=== PATIENT | female | born 1975 | race Caucasian/White ===

== ENCOUNTER 2023-08-19 18:22 | Inpatient (IN) | payer BC, OTHER ==
[~2023-08-19] VITALS: Ht 165.1 cm; Wt 138.2 kg
[2023-08-19 18:52] LABS: BASOPHILS % (AUTO) 0.4 % (0-1); EOSINOPHILS % (AUTO) 0 % (0-6); HEMATOCRIT 32.9 % (35.0-45.0); HEMOGLOBIN 10.9 g/dl (12.0-16.0); LYMPHOCYTES # (AUTO) 0.8 X10'3 (1.1-4.8); LYMPHOCYTES % (AUTO) 8.2 % (21-51); MEAN CORPUSCULAR HEMOGLOBIN 26.3 PG (27.0-31.0); MEAN CORPUSCULAR HGB CONC 33.2 g/dL (33.0-36.5); MEAN CORPUSCULAR VOLUME 79.4 FL (78-98); MEAN PLATELET VOLUME 8.6 FL (7.4-10.4); MONOCYTES # (AUTO) 0.5 X10'3 (0-0.9); MONOCYTES % (AUTO) 5.1 % (2-12); NEUTROPHILS % (AUTO) 86.3 % (42-75); PLATELET COUNT 279 X10'3 (140-440); RED BLOOD COUNT 4.14 X10'6 (4.20-5.60); RED CELL DISTRIBUTION WIDTH 15.9 % (11.5-14.5); WHITE BLOOD COUNT 10.4 X10'3 (4.5-11.0)
[2023-08-19 19:09] LABS: ALANINE AMINOTRANSFERASE 14 U/L (12-78); ALBUMIN 3.1 G/DL (3.4-5.0); ALBUMIN/GLOBULIN RATIO 0.8 (1.1-1.5); ALKALINE PHOSPHATASE 66 IU/L (46-116); ANION GAP 9 (8-16); ASPARTATE AMINO TRANSFERASE 13 U/L (10-37); BILIRUBIN,TOTAL 0.7 MG/DL (0.1-1.0); BLOOD UREA NITROGEN 27 MG/DL (7-18); BUN/CREATININE RATIO 15.7 (10.0-20.0); CALCIUM 9.5 MG/DL (8.5-10.1); CHLORIDE 95 MMOL/L (99-107); CREATININE 1.72 MG/DL (0.40-0.90); GLUCOSE 239 MG/DL (70-104); POTASSIUM 3.8 MMOL/L (3.5-5.1); SODIUM 132 MMOL/L (135-145); TOTAL CARBON DIOXIDE 27.6 MMOL/L (24-32); TOTAL PROTEIN 6.9 G/DL (6.4-8.2); eCRCL 36 ML/MIN; eGFR 32 ML/MIN
[2023-08-19 19:15] LABS: PRO BRAIN NATRIURETIC PEPTIDE 12362 PG/ML (0-125)
--- NOTE | 2023-08-19 19:38 | NUR ---
DR. SHARMA AWARE OF PT EXTREME DISCOMFORT AND INABILITY TO GET COMFORTABLE. NO ORDERS REC'D, PT WILL BE SEEN VIDA
[2023-08-19] MEDS ORDERED: temazepam 15mg capsule PO PRN (21:00)
[2023-08-19] MEDS ORDERED: aspirin 81mg tab.chew PO ONE (21:00)
[2023-08-19] MEDS ORDERED: heparin 10,000 units/1 ML INJ IV ONE (21:00)
[2023-08-19] MEDS ORDERED: heparin 25,000 UNIT/250ml bag 250 ML IV PRN (21:00)
[2023-08-19] MEDS ORDERED: morphine 4 MG/ML inj SYRINge IV ONE (21:00)
[2023-08-19] MEDS ORDERED: nitroGLYCERIN 0.4mg/hour patch TD ONE (21:00)
[2023-08-19 21:13] LABS: ETHANOL < 10 MG/DL (<10); THYROID STIMULATING HORMONE 1.75 ulU/ml (0.34-4.50)
[2023-08-19 21:15] LABS: APTT 26 SECONDS (22-32); D-DIMER 1.92 MG/L FEU (0-0.50); PROTHROMBIN TIME 10.3 SECONDS (9.0-12.0)
[2023-08-19 21:47] LABS: C-REACTIVE PROTEIN 0.48 MG/DL (0.0-0.5); PHOSPHORUS 3.4 MG/DL (2.3-4.5)
[2023-08-19] MEDS ORDERED: mag hydrox/Alum hydrox/simeth 30ml oral suspension PO PRN (22:25)
[2023-08-19] MEDS ORDERED: HYDROcodone/acetaminophen 10/325mg tab PO PRN (22:25)
[2023-08-19] MEDS ORDERED: diphenhydrAMINE 50 mg/ml inj IV PRN (22:25)
[2023-08-19] MEDS: normal saline 1000ml 1,000 ML IV SCH (22:25)
[2023-08-19] MEDS ORDERED: acetaminophen 325mg tablet PO PRN ×2 (22:25)
[2023-08-19] MEDS ORDERED: diphenhydrAMINE 25mg capsule PO PRN (22:25)
[2023-08-19] MEDS ORDERED: ondansetron/PF 4mg/2ml inj IV PRN (22:25)
[2023-08-19] MEDS ORDERED: HYDROcodone/acetaminophen 5mg/325mg tablet PO PRN (22:25)
[2023-08-19] MEDS ORDERED: magnesium hydroxide 30ml (MOM) UD suspension PO PRN (22:25)
[2023-08-19] MEDS ORDERED: ondansetron 4mg rapidly disintigrating tab PO PRN (22:25)
[2023-08-19] MEDS ORDERED: morphine 2 MG/ML inj. syringe IV PRN ×2 (22:25)
[2023-08-19] MEDS ORDERED: bisacodyl 10mg suppository rectal RC PRN (22:25)
[2023-08-19] MEDS ORDERED: insulin Lispro (HumaLOG) vial - multi-dose SQ SCH (22:30)
[2023-08-19] MEDS ORDERED: glucagon, human recombinant 1mg kit SUBCUT PRN (22:30)
[2023-08-19] MEDS ORDERED: MESSAGE TO PHARMACY PO ONE (22:30)
[2023-08-19] MEDS ORDERED: dextrose 50%-water 50ml dispensing syringe IV PRN ×2 (22:30)
[2023-08-19] MEDS ORDERED: DEXTROSE 15 GM of carb/4 tabs (each vial/BOTTLE has 4 tablets) PO PRN ×2 (22:30)
[2023-08-19] MEDS ORDERED: carVEDilol 3.125mg tablet PO ONE (22:35)
[2023-08-19 22:53] LABS: HEMOGLOBIN A1C 7.5 % (4.5-6.2)
[2023-08-19 23:19] LABS: MAGNESIUM 1.7 MG/DL (1.5-2.4)
[2023-08-20 01:01] VITALS: BP 167/92; PULSE 81; RESP 16; TEMP 98.8; O2SAT 97
[2023-08-20 01:55] LABS: BILIRUBIN,URINE NEGATIVE (Neg); COLOR,URINE YELLOW (Yellow); GLUCOSE, URINE 250 mg/dl (Neg); KETONES,URINE NEGATIVE (Neg); LEUKOCYTE ESTERASE ,URINE NEGATIVE (Neg); NITRITES, URINE NEGATIVE (Neg); OCCULT BLOOD,URINE NEGATIVE (Neg); PROTEIN,URINE >=300 mg/dl (Neg); UROBILINOGEN,URINE 0.2 E.U/dL (0.2-1.0)
[2023-08-20 02:03] LABS: CLARITY,URINE SLIGHTLY CLOUDY (Clear); UA COLLECTION TYPE OTHER
[2023-08-20 02:04] LABS: FINE GRANULAR CAST >30 /LPF (NEGATIVE)
[2023-08-20 02:05] LABS: SQUAMOUS EPITHELIAL CELL,UR MODERATE /LPF (FEW)
[2023-08-20 02:06] LABS: BACTERIA,URINE 2+ /HPF (Neg); WBC,URINE 0-4 /HPF (0-4)
[2023-08-20 02:16] LABS: URINE AMPHETAMINE SCREEN NEGATIVE (Neg); URINE BARBITUATE SCREEN NEGATIVE (Neg); URINE BENZODIAZEPINES SCREEN NEGATIVE (Neg); URINE CANNABINOID SCREEN NEGATIVE (Neg); URINE COCAINE SCREEN NEGATIVE (Neg); URINE METHADONE SCREEN NEGATIVE (Neg); URINE OPIATE SCREEN NEGATIVE (Neg); URINE PHENCYCLIDINE SCREEN NEGATIVE (Neg)
[2023-08-20 04:08] LABS: BASOPHILS % (AUTO) 0.4 % (0-1); EOSINOPHILS % (AUTO) 0.1 % (0-6); HEMATOCRIT 30.2 % (35.0-45.0); HEMOGLOBIN 9.7 g/dl (12.0-16.0); LYMPHOCYTES # (AUTO) 1.3 X10'3 (1.1-4.8); LYMPHOCYTES % (AUTO) 14.5 % (21-51); MEAN CORPUSCULAR HEMOGLOBIN 25.7 PG (27.0-31.0); MEAN CORPUSCULAR HGB CONC 32.3 g/dL (33.0-36.5); MEAN CORPUSCULAR VOLUME 79.5 FL (78-98); MEAN PLATELET VOLUME 8.6 FL (7.4-10.4); MONOCYTES # (AUTO) 0.5 X10'3 (0-0.9); MONOCYTES % (AUTO) 6.1 % (2-12); NEUTROPHILS # (AUTO) 6.9 X10'3 (1.8-7.7); NEUTROPHILS % (AUTO) 78.9 % (42-75); PLATELET COUNT 263 X10'3 (140-440); RED BLOOD COUNT 3.79 X10'6 (4.20-5.60); RED CELL DISTRIBUTION WIDTH 15.5 % (11.5-14.5); WHITE BLOOD COUNT 8.7 X10'3 (4.5-11.0)
[2023-08-20 04:20] LABS: ALANINE AMINOTRANSFERASE 12 U/L (12-78); ALBUMIN 2.7 G/DL (3.4-5.0); ALBUMIN/GLOBULIN RATIO 0.8 (1.1-1.5); ALKALINE PHOSPHATASE 56 IU/L (46-116); ANION GAP 6 (8-16); ASPARTATE AMINO TRANSFERASE 8 U/L (10-37); BILIRUBIN,TOTAL 0.5 MG/DL (0.1-1.0); BLOOD UREA NITROGEN 27 MG/DL (7-18); CALCIUM 8.9 MG/DL (8.5-10.1); CHLORIDE 99 MMOL/L (99-107); CHOL/HDL RATIO 6.3 (0.00-4.99); CHOLESTEROL 244 MG/DL (0-200); CREATININE 1.69 MG/DL (0.40-0.90); GLUCOSE 191 MG/DL (70-104); HDL CHOLESTEROL 39 MG/DL (35-60); LDL CHOLESTEROL 164 MG/DL (50-100); POTASSIUM 3.7 MMOL/L (3.5-5.1); SODIUM 133 MMOL/L (135-145); TOTAL CARBON DIOXIDE 27.8 MMOL/L (24-32); TRIGLYCERIDES 136 MG/DL (20-135); eCRCL 36 ML/MIN; eGFR 32 ML/MIN
[2023-08-20] MEDS: heparin 10,000 units/1 ML INJ IV PRN ×2 (04:37→11:51)
[2023-08-20 06:00] VITALS: BP 131/56; PULSE 77; RESP 20; TEMP 98.8; O2SAT 94
--- NOTE | 2023-08-20 06:31 | NUR ---
Problems reprioritized. Patient report given, questions answered & plan of care reviewed with GRISELDA CLOUD.
--- NOTE | 2023-08-20 06:43 | NUR ---
Patient in room PCU 3012. I have received report from Ivana VILLALOBOS and had the opportunity to ask questions and assume patient care.
[2023-08-20] MEDS ORDERED: pantoprazole 40mg Tablet.DR PO SCH (07:30)
[2023-08-20] MEDS ORDERED: furosemide 40mg tablet PO SCH (08:00)
[2023-08-20] MEDS ORDERED: docusate sod 100mg capsule PO SCH (08:00)
[2023-08-20] MEDS ORDERED: metoprolol succinate 25mg (24-HOUR) SR. Tablet PO SCH (08:00)
[2023-08-20] MEDS ORDERED: nitroGLYCERIN 0.4mg/hour patch TD SCH (08:00)
[2023-08-20] MEDS: normal saline 1000ml 1,000 ML IV SCH (08:25)
[2023-08-20] MEDS ORDERED: aspirin 81mg tab.chew PO SCH (08:30)
[2023-08-20 12:00] VITALS: BP 145/81; PULSE 77; RESP 15; TEMP 98; O2SAT 92
--- NOTE | 2023-08-20 13:24 | NUR ---
PAGER ID: [phone] MESSAGE: Jahaira [id number], Pt has medication questions if you had time to discuss them with her. Scout [id number]
--- NOTE | 2023-08-20 13:57 | NUR ---
PAGER ID: [phone] MESSAGE: Jahaira [id number], Pt has her med list in her folder from the ER, echo is being performed now. Scout [id number]
[2023-08-20] MEDS ORDERED: ATOR40TA71 PO (14:25)
[2023-08-20] MEDS ORDERED: AMLO10TA13 PO (14:25)
[2023-08-20 15:00] VITALS: BP 105/63; PULSE 79; RESP 18; TEMP 97.9; O2SAT 97
[2023-08-20] MEDS ORDERED: ISOS30TA84 PO (15:00)
[2023-08-20] MEDS ORDERED: HYDR-4070 PO (15:00)
[2023-08-20] MEDS ORDERED: OMEP20CA16 PO (15:00)
[2023-08-20] MEDS ORDERED: ONDA-103 PO (15:00)
[2023-08-20] MEDS ORDERED: METO10TA3 PO (15:00)
[2023-08-20] MEDS ORDERED: METO50TA16 PO (15:00)
[2023-08-20] MEDS ORDERED: LANTUS SQ (15:00)
[2023-08-20] MEDS ORDERED: AZIT200S48 PO (15:00)
--- NOTE | 2023-08-20 15:28 | NUR ---
PAGER ID: [phone] MESSAGE: Jahaira [id number], Pt med rec has been completed and reviewed. Still discharging pt unless there are any changes you want done. Scout [id number]
--- NOTE | 2023-08-20 16:09 | NUR ---
Malnutrition and DM consult: pt presents with and A1C of 7.5. RD and RD leadership intern saw pt at bedside. Pt suggested that she has not eaten for the past 3 days inducing nausea and vomiting, pt related this to high A1C and stated 2 weeks ago A1C was 6.5. Pt stated previous DM education provided elsewhere, and accepted written DM education and RD contact information. Pt reports suspected possible wt. loss of 21 lbs over the past month based on previous wt of 325lbs taken at doctors office and poor appetite since previous cholecystectomy. Of note pt reports changed diet to low fat diet following cholecystectomy, wt loss expected. Pt currently on carb control diet and has consumed ~50% to 75% over 2 meals since admit.No visible muscle or fat wasting appreciated during visit. LBM 08/18 per pt. Pt. currently lacks a minimum of two criteria for malnutrition. Will continue to follow for further monitor malnutrition criteria and nutritional needs. Recs: 1)Continue Carb Control diet 2) Bowel care as needed 3)weekly wts Addendum: 08/20/23 at 1611 by Kelly Carlton Intern RD Amended: Links added. Addendum: 08/20/23 at [address] I have reviewed and agree with note by internet media plannerLucy Garland RD
--- NOTE | 2023-08-20 17:00 | NUR ---
Pt D/C per hospitalist. PIVs removed. Tele discontinued. All belongings taken home by pt. Discharge instructions reviewed, all questions and concerns addressed. 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 Pt wheeled down to lobby in wheelchair by nursing staff with mother.
[2023-08-20] MEDS ORDERED: insulin glargine (Lantus) pen - multi-dose SQ SCH (21:00)
== END 2023-08-20 17:00 | disposition home or self-care (01) | DRG 682 ==
LOC: ER 18:22 → ED HOLD 22:26 → PCU 3S 23:55
PROVIDERS: ADMIT Family Medicine; ATTEND Family Medicine
PROC: CB121ZZ Planar Nuclear Medicine Imaging of Lungs and Bronchi using Technetium 99m (Tc-99m) (ICD-10-PCS; principal; 2023-08-20)
DX: N17.9 Acute kidney failure, unspecified (principal); I50.41 Acute combined systolic (congestive) and diastolic (congestive) heart failure; J96.01 Acute respiratory failure with hypoxia; I13.0 Hypertensive heart and chronic kidney disease with heart failure and stage 1 through stage 4 chronic kidney disease, or unspecified chronic kidney disease; Z68.43 Body mass index [BMI] 50.0-59.9, adult; N18.30 Chronic kidney disease, stage 3 unspecified; Z20.822 Contact with and (suspected) exposure to COVID-19; E11.22 Type 2 diabetes mellitus with diabetic chronic kidney disease; F41.0 Panic disorder [episodic paroxysmal anxiety]; E66.01 Morbid (severe) obesity due to excess calories; E78.00 Pure hypercholesterolemia, unspecified; E11.65 Type 2 diabetes mellitus with hyperglycemia; D64.9 Anemia, unspecified; Z79.899 Other long term (current) drug therapy; Z88.2 Allergy status to sulfonamides; Z90.49 Acquired absence of other specified parts of digestive tract
CPT/HCPCS: 36415; 71045; 78582; 80053; 80061; 80305; 80320; 81001; 82948; 83036; 83735; 83880; 84100; 84443; 84484; 85025; 85379; 85610; 85651; 85730; 86140; 87081; 87811; 93005; 93306; 96374; 96375; 99291; A4615; A9539; A9540; G0378; J1644; J2270; J2405; J7030